=== PATIENT | female | born 1985 | race Caucasian/White ===

== ENCOUNTER 2019-05-31 09:08 | Emergency (ER) | payer OTHER ==
[~2019-05-31] VITALS: Ht 160 cm; Wt 78.5 kg
[2019-05-31 09:15] VITALS: BP 118/69; Ht 160 cm; Wt 78.5 kg
== END 2019-05-31 10:08 | disposition home or self-care (01) ==
LOC: ED 09:08
DX: J06.9 Acute upper respiratory infection, unspecified (principal)